=== PATIENT | female | born 1985 | race Caucasian/White ===

== ENCOUNTER 2019-11-11 21:24 | Emergency (ER) | payer OTHER ==
[~2019-11-11] VITALS: Ht 162.6 cm; Wt 51.6 kg
[2019-11-11 21:32] VITALS: BP 106/68
[2019-11-11] MEDS ORDERED: ACETAMINOPHEN 500 MG TABLET PO ONE (22:15)
[2019-11-11] MEDS ORDERED: IV NORMAL SALINE 1,000ML 1,000 ML IV ONE (22:15)
[2019-11-11 22:23] LABS: BASO # 0.1 x10^3/uL (0.0-0.2); BASO % 0 % (0-3); EOS # 0.3 x10^3/uL (0.0-0.7); EOS % 2 % (0-3); HEMATOCRIT 37.5 % (36.0-47.0); HEMOGLOBIN 12.3 g/dL (12.0-15.5); LYMPH # 1.6 x10^3/uL (1.0-4.8); LYMPH % 12 % (24-48); MEAN CORPUSCULAR HEMOGLOBIN 30 pg (25-35); MEAN CORPUSCULAR HGB CONC 33 g/dL (31-37); MEAN CORPUSCULAR VOLUME 92 fL (79-100); MONO # 0.9 x10^3/uL (0.0-1.1); MONO % 7 % (0-9); NEUT # 10.4 x10^3uL (1.8-7.7); NEUT % 78 % (31-73); PLATELET COUNT 205 x10^3/uL (140-400); RED BLOOD COUNT 4.08 x10^6/uL (3.50-5.40); RED CELL DISTRIBUTION WIDTH 14.2 % (11.5-14.5); WHITE BLOOD COUNT 13.3 x10^3/uL (4.0-11.0)
[2019-11-11 22:33] LABS: BACTERIA,URINE 0 /HPF (0-FEW); BILIRUBIN,URINE NEG (NEG); CLARITY,URINE CLEAR; COLOR,URINE STRAW; GLUCOSE,URINE NEG (NEG); NITRITE,URINE NEG (NEG); RBC,URINE RARE /HPF (0-2); SQUAMOUS EPITHELIAL CELL,UR FEW /LPF; UROBILINOGEN,URINE 0.2 mg/dL (0.2 mg/dL); WBC,URINE OCC /HPF (0-4)
[2019-11-11 22:35] LABS: CALCIUM 9.2 mg/dL (8.5-10.1); CREATININE 0.4 mg/dL (0.6-1.0); POTASSIUM 4.4 mmol/L (3.5-5.1)
[2019-11-11 22:45] LABS: INFLUENZA A PATIENT NEGATIVE (NEGATIVE); INFLUENZA B PATIENT NEGATIVE (NEGATIVE)
[2019-11-11 22:47] LABS: ALBUMIN 3.8 g/dL (3.4-5.0); ALBUMIN/GLOBULIN RATIO 1.3 (1.0-1.7); TOTAL BILIRUBIN 0.2 mg/dL (0.2-1.0); TOTAL PROTEIN 6.8 g/dL (6.4-8.2)
--- NOTE | 2019-11-11 22:56 | EKG ---
[address] [address] Test Date: 2019-11-11 Test Time: 22:34:02 Pat Name: AUSTIN JAMISON Department: Room: Gender: F [employer]: : 1985 Requested By: DANUTA WILEY Order Number: [id number] Reading MD: Measurements Intervals [place] Rate: 82 P: 54 ID: [id number] QRS: 82 QRSD: 86 T: 77 QT: 366 QTc: 431 Interpretive Statements SINUS RHYTHM T ABNORMALITY IN ANTEROSEPTAL LEADS ABNORMAL ECG RI6.01 No previous ECG available for comparison
--- NOTE | 2019-11-11 23:06 | RAD ---
AP chest. HISTORY: Chest pain, cough, dizziness, recent hernia repair AP view was taken of the chest. There is no pneumothorax or pleural effusion. Heart is normal in size. There is mild atelectasis or infiltrate in the medial right lower lobe. PA and lateral views of be of benefit for better evaluation. IMPRESSION: 1. Atelectasis or infiltrate right lower lobe. Electronically signed by: Jaime Jimenez MD (11/11/2019 11:03 PM) [id number]
[2019-11-12] MEDS ORDERED: AMOX500T PO (00:02)
[2019-11-12] MEDS ORDERED: AZIT250T6 PO (00:02)
[2019-11-12] MEDS ORDERED: cefTRIAXone SODIUM 1 GM VIAL ONE (00:04)
[2019-11-12] MEDS ORDERED: IV NORMAL SALINE 50ML 50 ML ONE (00:05)
--- NOTE | 2019-11-12 03:55 | PHYS DOC ---
Past History Past Medical History: Other Additional Past Medical Histor: WPW, Past Surgical History: Other Additional Past Surgical Histo: cardiac ablasions x2, henria repair 11/06/19 Alcohol Use: None Adult General Chief Complaint Chief Complaint: WEAKNESS/GENERALIZED HPI HPI Patient is a 34-year-old female presenting with cough shortness of breath lightheadedness fast heart rate she is 5 days status post bilateral inguinal hernia repair she has been feeling dizzy and weak and coughing more. She went to urgent care they diagnosed her with bronchitis clinically they gave her amoxicillin but she was feeling worse tonight so she came to the emergency room for evaluation she denies urinary symptoms denies abdominal pain just this kind of shortness of breath when she tries to exert herself and her heart rate goes up to 120. She is also coughing mostly dry cough she feels like the same is pretty much the same as last time she had pneumonia last year. Review of Systems Review of Systems Constitutional: She is having a lot of hot flashes sweats and cold at the same time Eyes: Denies change in visual acuity, redness, or eye pain [] HENT: : Denies dysuria or hematuria [] Musculoskeletal: Denies back pain or joint pain [] Integument: Denies rash or skin lesions [] Neurologic: Denies headache, focal weakness or sensory changes [] Endocrine: Denies polyuria or polydipsia [] All other systems were reviewed and found to be within normal limits, except as documented in this note. Current Medications Current Medications Current Medications Medications (Trade) Dose Ordered Sig/Chika Start Time Stop Time Status Last Admin Dose Admin Acetaminophen (Tylenol) 1,000 mg 1X ONCE 11/11/19 22:15 11/11/19 23:10 DC 11/11/19 22:16 1,000 MG Ceftriaxone Sodium 1 gm/ Sodium Chloride 50 ml @ 100 mls/hr 1X ONCE 11/12/19 00:00 11/12/19 00:29 DC 11/12/19 00:12 100 MLS/HR Ceftriaxone Sodium (Rocephin) 1 gm STK-MED ONCE 11/12/19 00:04 11/12/19 00:04 DC Sodium Chloride 50 ml @ As Directed STK-MED ONCE 11/12/19 00:05 11/12/19 00:05 DC Allergies Allergies Allergies Coded Allergies Type Severity Reaction Last Updated Verified Unable to Assess 11/11/19 No Physical Exam Physical Exam Constitutional: Well developed, well nourished, no acute distress, non-toxic appearance. [] HENT: Normocephalic, atraumatic, bilateral external ears normal, oropharynx moist, no oral exudates, nose normal. [] Eyes: PERRLA, EOMI, conjunctiva normal, no discharge. [] Neck: Normal range of motion, no tenderness, supple, no stridor. [] Cardiovascular:Heart rate regular rhythm, no murmur [] was normal when laying flat but became tachycardic by radial pulse when standing up. Lungs & Thorax: Bilateral breath sounds clear to auscultation [] Abdomen: Bowel sounds normal, soft, no tenderness, no masses, no pulsatile masses. [] Well-healing surgical incisions no signs of any peritoneal signs. Skin: Warm, dry, no erythema, no rash. [] Back: No tenderness, no CVA tenderness. [] Extremities: No tenderness, no cyanosis, no clubbing, ROM intact, no edema. [] No calf tenderness Neurologic: Alert and oriented X 3, normal motor function, normal sensory function, no focal deficits noted. [] Psychologic: Affect normal, judgement normal, mood normal. [] Current Patient Data Vital Signs Vital Signs Date Time Temp Pulse Resp B/P (MAP) Pulse Ox O2 Delivery O2 Flow Rate FiO2 11/11/19 21:32 98.6 92 20 106/68 (81) 95 Room Air Lab Results Laboratory Tests Test 11/11/19 21:49 11/11/19 21:52 White Blood Count 13.3 x10^3/uL (4.0-11.0) H Red Blood Count 4.08 x10^6/uL (3.50-5.40) Hemoglobin 12.3 g/dL (12.0-15.5) Hematocrit 37.5 % (36.0-47.0) Mean Corpuscular Volume 92 fL (79-100) Mean Corpuscular Hemoglobin 30 pg (25-35) Mean Corpuscular Hemoglobin Concent 33 g/dL (31-37) Red Cell Distribution Width 14.2 % (11.5-14.5) Platelet Count 205 x10^3/uL (140-400) Neutrophils (%) (Auto) 78 % (31-73) H Lymphocytes (%) (Auto) 12 % (24-48) L Monocytes (%) (Auto) 7 % (0-9) Eosinophils (%) (Auto) 2 % (0-3) Basophils (%) (Auto) 0 % (0-3) Neutrophils # (Auto) 10.4 x10^3uL (1.8-7.7) H Lymphocytes # (Auto) 1.6 x10^3/uL (1.0-4.8) Monocytes # (Auto) 0.9 x10^3/uL (0.0-1.1) Eosinophils # (Auto) 0.3 x10^3/uL (0.0-0.7) Basophils # (Auto) 0.1 x10^3/uL (0.0-0.2) D-Dimer (Leann) 0.46 mg/L (0.00-0.50) Urine Collection Type Unknown Urine Color Straw Urine Clarity Clear Urine pH 7.0 Urine Specific [place] 1.010 Urine Protein Neg (NEG-TRACE) Urine Glucose (UA) Neg mg/dL (NEG) Urine Ketones (Stick) Neg mg/dL (NEG) Urine Blood Small (NEG) Urine Nitrite Neg (NEG) Urine Bilirubin Neg (NEG) Urine Urobilinogen Dipstick 0.2 mg/dL (0.2 mg/dL) Urine Leukocyte Esterase Neg (NEG) Urine RBC Rare /HPF (0-2) Urine WBC Occ /HPF (0-4) Urine Squamous Epithelial Cells Few /LPF Urine Bacteria 0 /HPF (0-FEW) Sodium Level 141 mmol/L (136-145) Potassium Level 4.4 mmol/L (3.5-5.1) Chloride Level 105 mmol/L (98-107) Carbon Dioxide Level 25 mmol/L (21-32) Anion Gap 11 (6-14) Blood Urea Nitrogen 14 mg/dL (7-20) Creatinine 0.4 mg/dL (0.6-1.0) L Estimated GFR (Cockcroft-Gault) 185.0 BUN/Creatinine Ratio 35 (6-20) H Glucose Level 88 mg/dL (70-99) Calcium Level 9.2 mg/dL (8.5-10.1) Total Bilirubin 0.2 mg/dL (0.2-1.0) Aspartate Amino Transferase (AST) 18 U/L (15-37) Alanine Aminotransferase (ALT) 24 U/L (14-59) Alkaline Phosphatase 81 U/L (46-116) Troponin I Quantitative < 0.017 ng/mL (0-0.055) ID-Eod-A-Type Natriuretic Peptide 90 pg/mL (0-124) Total Protein 6.8 g/dL (6.4-8.2) Albumin 3.8 g/dL (3.4-5.0) Albumin/Globulin Ratio 1.3 (1.0-1.7) Influenza Type A (Rapid) Negative (NEGATIVE) Influenza Type B (Rapid) Negative (NEGATIVE) POC Urine HCG, Qualitative hcg negative (Negative) EKG EKG Sinus rhythm rate of 82 nonspecific changes anteriorly no STEMI interpreted by me time of encounter. [] Radiology/Procedures Radiology/Procedures []IMPRESSION: 1. Atelectasis or infiltrate right lower lobe. Electronically signed by: Jaime Becker MD (11/11/2019 11:03 PM) [id number] DICTATED AND SIGNED BY: JAIME BECKER MD DATE: 11/11/192302 CC: DANUTA WILEY MD; PCP,NO ~ Course & Med Decision Making Course & Med Decision Making Pertinent Labs and Imaging studies reviewed. (See chart for details) [] 34-year-old female with 5 days status post bilateral inguinal hernia repair presenting with cough shortness of breath subjective fever found to have pneumonia on the right lower lung field. Patient did have mild leukocytosis blood pressure was stable patient had adequate oxygenation had mild tachycardia with standing up this improved after IV fluids and she was feeling much better. D-dimer was within normal range I considered PE due to her previous surgery but with a normal d-dimer and the presence of infiltrate at the right lung base and clinical history consistent with pneumonia I think we can stop there. Patient was provided and she is still breast-feeding so provided with amoxicillin and azithromycin combination for treatment of pneumonia and recommended follow-up with primary care doctor within 1 month to evaluate for clearance of the chest x-ray return precautions discussed in detail for any worsening shortness of breath unable to take antibiotics or other symptoms or concerns. She voiced understanding. We gave a dose of IV ceftriaxone in the emergency room as well. Dragon Disclaimer Dragon Disclaimer This electronic medical record was generated, in whole or in part, using a voice recognition dictation system. Departure Departure: Impression: Primary Impression: Pneumonia Disposition: HOME, SELF-CARE Condition: STABLE Patient Instructions: Pneumonia, Adult Scripts Azithromycin (AZITHROMYCIN TABLET) 250 Mg Tablet 1 PKG PO UD for pneumonia. for 5 Days, #6 TAB 0 Refills 2 the first day followed by 1 for days 2-5 Prov: DANUTA WILEY MD 11/12/19 Amoxicillin (AMOXICILLIN) 500 Mg Tablet 2 TAB PO TID for pneumonia., #42 TAB Prov: DANUTA WILEY MD 11/12/19 DANUTA WILEY MD Nov 12, 2019 03:55
== END 2019-11-12 00:59 | disposition home or self-care (01) ==
LOC: ER 21:24
DX: J18.9 Pneumonia, unspecified organism (principal); R42 Dizziness and giddiness
CPT/HCPCS: 36415; 71045; 80053; 81001; 81025; 83880; 84484; 85025; 85379; 87804; 93005; 96365; 99285; J0696; J7030